=== PATIENT | male | born 1935 | race Caucasian/White ===

== ENCOUNTER 2016-12-16 14:59 | Inpatient (IN) | payer MEDICARE ==
[~2016-12-16] VITALS: Ht 177.8 cm; Wt 101.8 kg
[2016-12-16 16:02] LABS: BASOPHILS 0.4 % (0-2); HEMATOCRIT 37.5 % (42.0-54.0); IMMATURE GRANULOCYTES 0.4 % (0-5); MCH 29.8 pg (26.0-34.0); MCHC 34.7 g/dL (31.0-37.0); MEAN PLATELET VOLUME 11.3 fL (7.4-10.4); MONOCYTES 7.1 % (2-11); NEUTROPHILS 83.1 % (40-80); PLATELET COUNT 143 10x3/uL (130-400); RBC 4.36 10x6/uL (4.20-6.10); RDW 13.3 % (11.5-14.5)
[2016-12-16 16:11] LABS: INR 1.19 (0.85-1.17)
[2016-12-16 16:18] LABS: ALBUMIN 2.4 g/dL (3.4-5.0); ALKALINE PHOSPHATASE 38 U/L (46-116); ALT (SGPT) 112 U/L (10-68); BILIRUBIN - TOTAL 1.14 mg/dL (0.2-1.3); CALC OSMOLALITY 256 mosm/kg (275-300); CALCIUM 8.1 mg/dL (8.5-10.1); CHLORIDE - SERUM 94 mmol/L (98-107); GLUCOSE 108 mg/dL (74-106); POTASSIUM - SERUM 3.9 mmol/L (3.5-5.1); PROTEIN - SERUM 6.8 g/dL (6.4-8.2); SODIUM 127 mmol/L (136-145); UREA NITROGEN 16 mg/dL (7-18); eGFR NON AFRICAN AMERICAN 76 mL/min (90-120)
[2016-12-16 16:40] LABS: CREATINE KINASE 291 UL (21-232); MAGNESIUM - SERUM 1.8 mg/dL (1.8-2.4); PRO BNP 907 pg/mL (0-450); THYROID STIMULATING HORMONE 1.74 uIU/mL (0.36-3.74)
[2016-12-16 16:50] LABS: C-REACTIVE PROTEIN 21.8 mg/dL (0.0-0.9); TROPONIN-I 0.262 ng/mL (0.000-0.060)
[2016-12-16 16:53] LABS: CKMB 1.8 U/L (0.0-3.6); DIGOXIN 0.18 ng/mL (0.90-2.00)
--- NOTE | 2016-12-16 20:10 | NUR ---
PT RESTING IN BED WITH GUEST AT BEDSIDE AND DENIES NEEDS AT THIS TIME. BED IN LOWEST POSITION AND CALL LIGHT WITHIN REACH. ENCOURAGED THE PT TO CALL IF HE HAS NEEDS.
[2016-12-17] VITALS (7 sets, daily range): BP systolic 114–130; BP diastolic 71–85; Ht 177.8 cm; Wt 101.8 kg
[2016-12-17 00:48] LABS: APPEARANCE HAZY (CLEAR); BILIRUBIN NEGATIVE (NEGATIVE); COLOR STRAW (YELLOW); GLUCOSE NEGATIVE (NEGATIVE); KETONE NEGATIVE (NEGATIVE); NITRITE NEGATIVE (NEGATIVE); PROTEIN TRACE mg/dL (NEGATIVE); UROBILINOGEN NORMAL (NORMAL)
[2016-12-17 00:49] LABS: BACTERIA MODERATE /hpf (NONE SEEN); EPITHELIAL CELLS 0-5 /hpf (0-5); RED CELLS - URINE NONE SEEN /hpf (0-5); WHITE CELLS - URINE NSEEN /hpf (0-5)
--- NOTE | 2016-12-17 02:45 | NUR ---
PATIENT STATED HE HAS BECOME INCREASINGLY TIRED AT HOME, HAS HAD A TEMP, AND HAS A RASH THAT HAS SPEAD ON HIS BODY
[2016-12-17] MEDS ORDERED: LIPITOR40 MG PO (04:18)
[2016-12-17] MEDS ORDERED: PRADAXA150 MG PO ×2 (04:19→11:14)
[2016-12-17] MEDS ORDERED: SYNTHROID50 MCG PO (04:20)
[2016-12-17] MEDS ORDERED: LANOXIN125 MCG PO (04:20)
[2016-12-17] MEDS ORDERED: TOPROL XL100 MG PO (04:21)
[2016-12-17] MEDS ORDERED: MULTIPLE VITAMI1 TA1 PO (04:21)
[2016-12-17] MEDS ORDERED: OMEPRAZOLE20 M1 PO (04:22)
[2016-12-17] MEDS ORDERED: KENALOG 0.1 % 115 GM TOPICAL (04:23)
[2016-12-17] MEDS ORDERED: KLOR-CON 1010 MEQ PO (04:23)
[2016-12-17] MEDS ORDERED: ASCORBIC ACID500 MG PO (04:24)
--- NOTE | 2016-12-17 08:39 | NUR ---
PT AOX4 RESP EVEN AND NONLABORED PT DENIES NEEDS AT THIS TIME IV TO RIGHT AC PATENT AND INTACT AT THIS TIME SRX2 BED AT LOWEST SETTING CALL LIGHT WITHIN REACH WILL CONTINUE TO MONITOR
[2016-12-17 10:30] LABS: BASOPHILS 0.1 % (0-2); EOSINOPHILS 0 % (0-7); HEMATOCRIT 36.6 % (42.0-54.0); HEMOGLOBIN 12.6 g/dL (13.5-17.5); IMMATURE GRANULOCYTES 0.4 % (0-5); LYMPHOCYTES 9.5 % (15-50); MCH 29.7 pg (26.0-34.0); MCHC 34.4 g/dL (31.0-37.0); MCV 86.3 fL (80.0-100.0); MEAN PLATELET VOLUME 11.3 fL (7.4-10.4); MONOCYTES 3.9 % (2-11); NEUTROPHILS 86.1 % (40-80); PLATELET COUNT 154 10x3/uL (130-400); RBC 4.24 10x6/uL (4.20-6.10); RDW 13.2 % (11.5-14.5); WBC 7.2 10x3/uL (4.8-10.8)
[2016-12-17 10:46] LABS: ALBUMIN 2.1 g/dL (3.4-5.0); ALKALINE PHOSPHATASE 40 U/L (46-116); ALT (SGPT) 131 U/L (10-68); BILIRUBIN - TOTAL 1.09 mg/dL (0.2-1.3); CALC OSMOLALITY 272 mosm/kg (275-300); CALCIUM 7.9 mg/dL (8.5-10.1); CARBON DIOXIDE 21.2 mmol/L (21.0-32.0); CHLORIDE - SERUM 100 mmol/L (98-107); CREATININE - SERUM 0.9 mg/dL (0.6-1.3); POTASSIUM - SERUM 3.6 mmol/L (3.5-5.1); PROTEIN - SERUM 6.3 g/dL (6.4-8.2); SODIUM 134 mmol/L (136-145); UREA NITROGEN 12 mg/dL (7-18); eGFR NON AFRICAN AMERICAN 86 mL/min (90-120)
[2016-12-17 10:47] LABS: GLUCOSE 187 mg/dL (74-106)
[2016-12-17] MEDS ORDERED: LISINOPRIL10 MG PO (11:12)
--- NOTE | 2016-12-17 12:55 | NUR ---
PT AOX4 RESP EVEN AND NONLABORED PT DENIES NEEDS AT THIS TIME SRX2 BED AT LOWEST SETTING CALL LIGHT WITHIN REACH WILL CONTINUE TO MONITOR
--- NOTE | 2016-12-17 20:05 | NUR ---
OT NOTE: PT COMPLETED UPRIGHT SITTING AND BED MOB WITH MIN/CGA. PT COMPLETED HYGIENE TASK WITH SBA. PT COMPLETED BUE AROM EXS FOR INCREASED AX TOLERANCE. PT REQUIRED REST BREAKS. THANK YOU, BLANKA BARNARD/Venkatesh
--- NOTE | 2016-12-17 20:49 | NUR ---
PATIENT RESTING IN BED AND DENIES NEEDS AT THIS TIME. ADMINISTERED MEDS PER ORDERS AND COMPLETED ASSESSMENT. BED IN LOWEST POSITION AND CALL LIGHT WITHIN REACH. ENCOURAGED THE PT TO CALL IF HE HAS NEEDS.
[2016-12-18 02:33] VITALS: BP 113/74
[2016-12-18 06:08] LABS: BASOPHILS 0.1 % (0-2); EOSINOPHILS 0.6 % (0-7); HEMATOCRIT 34.8 % (42.0-54.0); HEMOGLOBIN 11.8 g/dL (13.5-17.5); IMMATURE GRANULOCYTES 0.4 % (0-5); LYMPHOCYTES 8.7 % (15-50); MCH 29.5 pg (26.0-34.0); MCHC 33.9 g/dL (31.0-37.0); MONOCYTES 4.7 % (2-11); NEUTROPHILS 85.5 % (40-80); RDW 13.5 % (11.5-14.5); WBC 8.9 10x3/uL (4.8-10.8)
[2016-12-18 06:14] LABS: PLATELET COUNT 201 10x3/uL (130-400)
[2016-12-18 06:30] VITALS: BP 129/77
[2016-12-18 06:40] LABS: ALBUMIN 1.9 g/dL (3.4-5.0); ALKALINE PHOSPHATASE 39 U/L (46-116); ALT (SGPT) 126 U/L (10-68); CALC OSMOLALITY 274 mosm/kg (275-300); CALCIUM 7.8 mg/dL (8.5-10.1); CARBON DIOXIDE 21.9 mmol/L (21.0-32.0); CHLORIDE - SERUM 105 mmol/L (98-107); CREATININE - SERUM 0.8 mg/dL (0.6-1.3); POTASSIUM - SERUM 3.5 mmol/L (3.5-5.1); PROTEIN - SERUM 5.5 g/dL (6.4-8.2); SODIUM 137 mmol/L (136-145); UREA NITROGEN 12 mg/dL (7-18); eGFR NON AFRICAN AMERICAN > 90 mL/min (90-120)
[2016-12-18 06:49] LABS: GLUCOSE 116 mg/dL (74-106)
--- NOTE | 2016-12-18 08:00 | NUR ---
REC'D IN BED AWAKE AND ALERT. RESP EVEN AND UNLABORED WITH NO DISTRESSS NOTED. CAN EXPRESS NEEDS AND WANTS. NO C/O NOTED OR VOICED. ASSESSMENT COMPLETED. C/L IUN REACH AT BEDSIDE.
[2016-12-18 10:05] VITALS: BP 145/80
--- NOTE | 2016-12-18 12:42 | NUR ---
WAS INFORMED BY DAIRY FARMER THAT PT IS NEEDING TO BE SEEN BY COMMERCIAL COLLECTIONS SPECIALIST D/T ELEVATED HR. CALL WAS PLACED BY CLASSIFICATION ANALYST TO DR. CARSON OFF SHE SPOKE WITH HERMINIO. AWAITING CONSULT.
[2016-12-18 13:29] VITALS: BP 127/80
--- NOTE | 2016-12-18 14:14 | NUR ---
OT NOTE: ATTEMPTED IN AM, HOWEVER, PT REPORTED THAT HE HAD NOT SLEPT SINCE HE HAS BEEN HERE AND HE IS SO TIRED HE DIDNT FEEL LIKE DOING EXS AT THIS TIME. IN AFTERNOON, PT WAS UP IN CHAIR. ASSISTED PT BACK IN BED WITH MIN ASSIST; ABLE TO AMB TO BATHROOM WITH MIN ASSIST AND MIN ASSIST WITH TOILETING. ONCE PT WAS IN THE BED, HE WAS EXTREMELY FATIGUED AND UNABLE TO SCOOT UP IN BED. REQUIRED ASSIST FOR BED MOB.
[2016-12-18 16:56] VITALS: BP 103/55
--- NOTE | 2016-12-18 19:23 | NUR ---
PT IS LYING IN BED WIT EYES CLOSED, EVEN RISE AND FALLL OF CHEST, NO C/O PAIN, VOICED NO NEEDS AT TIHS TIME, PT CL IN REACH, BED IN LOW POSITION, CONTINUE WITH PLAN OF CARE
[2016-12-18 20:00] VITALS: BP 118/64
--- NOTE | 2016-12-18 20:24 | NUR ---
OT NOTE: PT COMPLETED BED MOB WITH MIN A. PT COMPLETED HYGIENE WITH SET UP. PT COMPLETED BUE AROM FOR INCREASED UPPER BODY STRENGTH. THANK YOU, BLANKA BARNARD/Venkatesh
--- NOTE | 2016-12-18 20:45 | NUR ---
PT IS LYING IN BED WITH ATTENDEE AT BEDSIDE, NG TUBE WAS PULLED AND PER DR GARZA NO TUBE TO BE REINSERTED. BED IN LOW POSITION, CALL LIGHT IN REACH NO SIGNS OF DISTRESS, ABD INCISION , [place] DRAIN
--- NOTE | 2016-12-18 21:00 | NUR ---
RECEIVED CARE FROM DAY NURSE. PT LYING IN BED IN LOW FOWLERS POSITION. REPORTS NO NEEDS AT THIS TIME. CALL LIGHT AT SIDE. IV INFUSING TO PATENT RIGHT AC PER ORDER.
[2016-12-19] VITALS: BP 110/66
[2016-12-19 04:00] VITALS: BP 132/82
--- NOTE | 2016-12-19 04:42 | NUR ---
ASLEEP WITH EASY RESPIRATIONS AND NO DISTRESS NOTED. HE LOOKS COMFORTABLE WITH THE BED LOW, RAISL UP X'S 2 AND THE CALL LIGHT AT HAND.
[2016-12-19 05:29] LABS: BASOPHILS 0.3 % (0-2); EOSINOPHILS 2.6 % (0-7); HEMATOCRIT 34.9 % (42.0-54.0); HEMOGLOBIN 11.9 g/dL (13.5-17.5); IMMATURE GRANULOCYTES 0.8 % (0-5); LYMPHOCYTES 16.7 % (15-50); MCH 29.8 pg (26.0-34.0); MCHC 34.1 g/dL (31.0-37.0); MCV 87.5 fL (80.0-100.0); MEAN PLATELET VOLUME 10.2 fL (7.4-10.4); MONOCYTES 7.9 % (2-11); NEUTROPHILS 71.7 % (40-80); PLATELET COUNT 204 10x3/uL (130-400); RBC 3.99 10x6/uL (4.20-6.10); RDW 13.6 % (11.5-14.5)
[2016-12-19 05:40] LABS: WBC 6.2 10x3/uL (4.8-10.8)
[2016-12-19 05:57] LABS: ALKALINE PHOSPHATASE 38 U/L (46-116); ALT (SGPT) 97 U/L (10-68); BILIRUBIN - TOTAL 0.61 mg/dL (0.2-1.3); CALC OSMOLALITY 270 mosm/kg (275-300); CALCIUM 7.8 mg/dL (8.5-10.1); CARBON DIOXIDE 21.8 mmol/L (21.0-32.0); CHLORIDE - SERUM 104 mmol/L (98-107); CREATININE - SERUM 0.9 mg/dL (0.6-1.3); GLUCOSE 93 mg/dL (74-106); POTASSIUM - SERUM 3.8 mmol/L (3.5-5.1); PROTEIN - SERUM 5.5 g/dL (6.4-8.2); SODIUM 136 mmol/L (136-145); UREA NITROGEN 11 mg/dL (7-18); eGFR NON AFRICAN AMERICAN 86 mL/min (90-120)
--- NOTE | 2016-12-19 07:44 | NUR ---
AM ROUNDS- PT IN BED, WITH EYES CLOSED, AROUSES EASILY TO VOICE. RESP EVEN AND UNLABORED. RT AC IV INFUSING NS AT 75CC/HR. BED LOW AND WHEELS LOCKED, BEDSIDE RAILS X2, PT DENIES ANY NEEDS AT THIS TIME, CALL LIGHT IN REACH, NAD NOTED, WILL CONTINUE TO PLAN OF CARE.
[2016-12-19 08:11] VITALS: BP 114/72
--- NOTE | 2016-12-19 09:12 | NUR ---
AM MEDS GIVEN AT THIS TIME. PT IN BED, EATING BREAKFAST, DENIES ANY NEEDS AT THIS TIME. CALL LIGHT IN REACH, NAD NOTED, WILL CONTINUE TO MONITOR.
[2016-12-19 12:17] LABS: ANA REFLEX - DIRECT Negative (Negative); HEP B CORE AB TOTAL Negative (Negative); HEPATITIS C ANTIBODY 0.2 (0.0-0.9)
--- NOTE | 2016-12-19 13:00 | NUR ---
DISCONNECTED PT FROM IV SO HE COULD GET IN THE SHOWER, PHOTOENGRAVING HELPER AT BEDSIDE TO CHANGE LINEN AND GET PT READY FOR SHOWER. PT DENIES ANY NEEDS AT THIS TIME. CALL LIGHT IN REACH, FAMILY AT BEDSIDE, NAD NOTED, WILL CONTINUE PLAN OF CARE.
[2016-12-19 13:48] VITALS: BP 139/85
[2016-12-19 16:03] VITALS: BP 116/70
[2016-12-19 20:00] VITALS: BP 88/58
[2016-12-20] VITALS: BP 95/74
--- NOTE | 2016-12-20 00:35 | NUR ---
PATIENT RESTING WITH EYES CLOSED AND NO VISIBLE SIGNS OF DISTRESS. BED IN LOWEST POSITION AND CALL LIGHT WITHIN REACH.
[2016-12-20 04:00] VITALS: BP 138/77
[2016-12-20 04:14] LABS: RAPID PLASMA REAGIN Non Reactive (Non Reactive)
[2016-12-20 06:46] LABS: BASOPHILS 0.4 % (0-2); EOSINOPHILS 5.2 % (0-7); HEMATOCRIT 36.3 % (42.0-54.0); IMMATURE GRANULOCYTES 0.8 % (0-5); LYMPHOCYTES 17.9 % (15-50); MCH 29.1 pg (26.0-34.0); MCHC 33.1 g/dL (31.0-37.0); MCV 87.9 fL (80.0-100.0); MEAN PLATELET VOLUME 10.2 fL (7.4-10.4); MONOCYTES 7.2 % (2-11); NEUTROPHILS 68.5 % (40-80); PLATELET COUNT 236 10x3/uL (130-400); RBC 4.13 10x6/uL (4.20-6.10); RDW 14.2 % (11.5-14.5); WBC 7.3 10x3/uL (4.8-10.8)
[2016-12-20 07:02] LABS: ALKALINE PHOSPHATASE 43 U/L (46-116); ALT (SGPT) 91 U/L (10-68); CALC OSMOLALITY 273 mosm/kg (275-300); CALCIUM 7.8 mg/dL (8.5-10.1); CHLORIDE - SERUM 105 mmol/L (98-107); CREATININE - SERUM 0.8 mg/dL (0.6-1.3); GLUCOSE 101 mg/dL (74-106); POTASSIUM - SERUM 3.7 mmol/L (3.5-5.1); PROTEIN - SERUM 5.6 g/dL (6.4-8.2); SODIUM 138 mmol/L (136-145); eGFR NON AFRICAN AMERICAN > 90 mL/min (90-120)
[2016-12-20 07:03] LABS: UREA NITROGEN 8 mg/dL (7-18)
[2016-12-20 08:24] VITALS: BP 136/76
--- NOTE | 2016-12-20 10:30 | NUR ---
PT WIHTOUT DISTRESS.BACK TO BED FROM BATHROOM.HR INCREASED TO 160 PER PARTNER INTEGRATION PLANNER. HR NOW DECREASED TO 120
[2016-12-20 12:46] VITALS: BP 117/72
--- NOTE | 2016-12-20 14:15 | NUR ---
PT RESTING IN BED WITH EYES OPEN CALL LIGHT IN REACH NO PROBLEMS WILL MONITER
--- NOTE | 2016-12-20 14:22 | NUR ---
DR SEQUEIRA NOTIFIED OF PTS HEART RATE NO FURTHER ORDERS
[2016-12-20 15:49] VITALS: BP 113/71
[2016-12-20 21:25] VITALS: BP 123/79
[2016-12-21 00:27] VITALS: BP 122/79
--- NOTE | 2016-12-21 01:16 | NUR ---
PATIENT RESTING IN BED AND DENIES NEEDS AT THIS TIME. BED IN LOWEST POSITION AND CALL LIGHT WITHIN REACH. ENCOURAGED THE PATIENT TO CALL IF HE HAS NEEDS.
[2016-12-21 05:53] VITALS: BP 135/84
[2016-12-21 06:13] LABS: BASOPHILS 0.4 % (0-2); EOSINOPHILS 5.3 % (0-7); HEMATOCRIT 37.4 % (42.0-54.0); HEMOGLOBIN 12.5 g/dL (13.5-17.5); IMMATURE GRANULOCYTES 0.5 % (0-5); LYMPHOCYTES 18.7 % (15-50); MCH 29.6 pg (26.0-34.0); MCHC 33.4 g/dL (31.0-37.0); MCV 88.4 fL (80.0-100.0); MEAN PLATELET VOLUME 9.8 fL (7.4-10.4); MONOCYTES 8.3 % (2-11); NEUTROPHILS 66.8 % (40-80); PLATELET COUNT 264 10x3/uL (130-400); RBC 4.23 10x6/uL (4.20-6.10); RDW 14.5 % (11.5-14.5); WBC 8.3 10x3/uL (4.8-10.8)
[2016-12-21 06:40] LABS: ALBUMIN 2.2 g/dL (3.4-5.0); ALKALINE PHOSPHATASE 48 U/L (46-116); ALT (SGPT) 83 U/L (10-68); CALC OSMOLALITY 276 mosm/kg (275-300); CALCIUM 7.8 mg/dL (8.5-10.1); CHLORIDE - SERUM 106 mmol/L (98-107); CREATININE - SERUM 0.8 mg/dL (0.6-1.3); GLUCOSE 99 mg/dL (74-106); POTASSIUM - SERUM 4.2 mmol/L (3.5-5.1); PROTEIN - SERUM 5.5 g/dL (6.4-8.2); SODIUM 140 mmol/L (136-145); UREA NITROGEN 7 mg/dL (7-18); eGFR NON AFRICAN AMERICAN > 90 mL/min (90-120)
--- NOTE | 2016-12-21 07:30 | NUR ---
REPORT RECEIVED. PT RESTING QUIETLY, RR EVEN AND UNLAORED. PT DENIES NEEDS AT THIS TIME, REPORTS FEELING "PRETTY GOOD." ASSESSMENT PERFORMED, RASH OVER MOST OF THE PTS BODY. WILL CTM.
[2016-12-21 07:44] VITALS: BP 143/89
[2016-12-21 12:25] VITALS: BP 123/79
[2016-12-21 16:09] VITALS: BP 136/70
--- NOTE | 2016-12-21 18:30 | NUR ---
RR EVEN AND UNLABORED, PT DENIES NEEDS AT THIS TIME. WILL GIVE REPORT ON PT CONDITION FOR THE DAY.
--- NOTE | 2016-12-21 19:15 | NUR ---
RECEIVED CARE FROM DAY NURSE. PT LYING IN LOW FOWLERS POSITION. REPORTS NO NEEDS AT THTIS TIME. CALL LIGHT AT SIDE. IV INFUSING PER ORDER.
[2016-12-21 20:25] VITALS: BP 126/75
--- NOTE | 2016-12-22 00:03 | NUR ---
PATIENT IS AWAKE, ALERT AND ORIENTED. PATIENT DENIES NEEDS AT THIS TIME. HANDED PATIENT HIS CALL LIGHT, TOLD HIM TO CALL IF HE NEEDS ANYTHING. PATIENT AGREED. PATIENT REQUESTED HIS DOOR CLOSED, CLOSED IT.
[2016-12-22 00:40] VITALS: BP 149/92
[2016-12-22 05:07] VITALS: BP 135/86
[2016-12-22 06:30] LABS: BASOPHILS 0.4 % (0-2); EOSINOPHILS 5.4 % (0-7); HEMATOCRIT 35.6 % (42.0-54.0); HEMOGLOBIN 11.8 g/dL (13.5-17.5); IMMATURE GRANULOCYTES 0.6 % (0-5); LYMPHOCYTES 22.3 % (15-50); MCH 29.4 pg (26.0-34.0); MCHC 33.1 g/dL (31.0-37.0); MCV 88.8 fL (80.0-100.0); MEAN PLATELET VOLUME 9.5 fL (7.4-10.4); MONOCYTES 9.6 % (2-11); NEUTROPHILS 61.7 % (40-80); PLATELET COUNT 258 10x3/uL (130-400); RBC 4.01 10x6/uL (4.20-6.10); RDW 14.4 % (11.5-14.5); WBC 6.9 10x3/uL (4.8-10.8)
[2016-12-22 06:46] LABS: ALBUMIN 2.1 g/dL (3.4-5.0); ALKALINE PHOSPHATASE 43 U/L (46-116); ALT (SGPT) 63 U/L (10-68); CALC OSMOLALITY 276 mosm/kg (275-300); CALCIUM 8.4 mg/dL (8.5-10.1); CARBON DIOXIDE 26.2 mmol/L (21.0-32.0); CHLORIDE - SERUM 107 mmol/L (98-107); CREATININE - SERUM 0.7 mg/dL (0.6-1.3); GLUCOSE 104 mg/dL (74-106); POTASSIUM - SERUM 3.8 mmol/L (3.5-5.1); PROTEIN - SERUM 5.7 g/dL (6.4-8.2); SODIUM 140 mmol/L (136-145); UREA NITROGEN 8 mg/dL (7-18); eGFR NON AFRICAN AMERICAN > 90 mL/min (90-120)
[2016-12-22 08:22] VITALS: BP 140/86
--- NOTE | 2016-12-22 08:58 | NUR ---
REC'D IN BED AWAKE AND ALERT. RESP EVEN AND UNLABORED WITH NO DISTRESS NOTED. CAN EXPRESS NEED AND WANTS. NO C/O NOTED OR VOICED AT THIS TIME. ASSESSMENT COMPLETED.C/L IN REACH AT BEDSIDE.
--- NOTE | 2016-12-22 10:11 | NUR ---
SITTING UP IN CHAIR. DENIES ANY NEEDS AT THIS TIME.
[2016-12-22] MEDS ORDERED: AMPICILLIN TRI500 MG PO (12:18)
[2016-12-22] MEDS ORDERED: FLORAJEN3 CAPS460 MG PO (12:19)
[2016-12-22 13:02] VITALS: BP 121/81
--- NOTE | 2016-12-22 13:30 | CN ---
PATIENT NAME:LUCY RANDOLPH MEDICAL RECORD: [id number] : 39 LOCATION:[id number] ADMIT DATE: 12/17/16 ACCOUNT: [id number] CONSULTING PHYSICIAN: JOEL FENTON MD REFERRING PHYSICIAN: HERMAN DEVRIES MD DATE OF CONSULTATION: 12/18/2016 HISTORY OF PRESENT ILLNESS: A 81-year-old gentleman with a longstanding history of atrial fibrillation by his report, occasionally symptomatic, history of hypertension, hypothyroidism on replacement, who was admitted with generalized rash of about a 2 week history. Evaluated, has had biopsy taken as well as multiple cultures taken. Has had some generalized malaise, fatigue. Occasionally knows his heart racing or pounding, has been on beta-chu as well as anticoagulation for CVA prophylaxis as well as digoxin. We are asked to see him concerning him cardiovascular status. PAST MEDICAL HISTORY: Includes; 1. History of hypertension. 2. Hypothyroidism, on replacement. 3. Atrial fibrillation. 4. Gastroesophageal reflux disease. MEDICATIONS: Include Pradaxa 150 mg b.i.d., omeprazole 20 daily, Synthroid 50 mcg daily, metoprolol 100 daily, digoxin 0.125 daily, Lipitor 10 daily. ALLERGIES: None known. SOCIAL HISTORY: Nonsmoker and nondrinker. Easily takes care of all ADLs regularly. REVIEW OF SYSTEMS: The patient reports easy bruising but reports no swollen glands. The patient reports no fever, no night sweats, no significant weight gain, no significant weight loss. No significant exercise tolerance. The patient reports no dry eyes, no irritation, no vision change. Patient reports no difficulty hearing and no ear pain. Patient reports no frequent nose bleeds or nose and sinus problems. Patient reports on arm pain on exertion. No shortness of breath while lying down. No history of heart murmur. Patient reports no cough, no wheezing or coughing up blood. Patient reports no abdominal pain, no vomiting. Normal appetite. No diarrhea and not vomiting blood. No nausea and no constipation. Patient reports no incontinence. No difficulty urinating. No hematuria. No increased frequency. Patient reports no muscle aches. No weakness, no arthralgias, no back pain. No swelling of the extremities. Patient reports no abnormal mole, no jaundice. Reports no loss of consciousness. No weakness and no numbness. No seizures, dizziness, or headaches. The patient reports no depression, no sleep disturbance, feeling safe in a relationship and no alcohol abuse. Patient reports on fatigue. Reports no runny nose or sinus pressure. No itching, no hives, and no frequent sneezing. PHYSICAL EXAMINATION: GENERAL: Pleasant gentleman in no acute distress. Obviously, diffuse purpuric appearing rash left upper extremity. VITAL SIGNS: Blood pressure 127/80, pulse 117 and irregular. HEENT: Normocephalic, atraumatic. NECK: No JVD or bruit. CONSULT REPORT [id number] LUCY RANDOLPH HEART: Irregular, rate is elevated. LUNGS: Good air excursion. ABDOMEN: Soft, nontender. EXTREMITIES: Pulse 2+. No edema. Rash described as above. NEUROLOGIC: Grossly intact. IMPRESSION: Atrial fibrillation, maybe exacerbated with recurrent underlying illness, already on no act for cerebrovascular accident prophylaxis. We will add extra dose of digoxin. Check echocardiograph study. Further recommendations based on above. TRANSINT:[id number] Voice Confirmation ID: [id number] DOCUMENT ID: [id number] JOEL FENTON MD at 1330 CC: [id number] DICTATION DATE: 12/18/16 1512 MORTGAGE LOAN COORDINATOR: 12/18/16 1604 ADM IN [facility] [address] [place] [address]
--- NOTE | 2016-12-22 14:48 | NUR ---
Patient Name: LUCY RANDOLPH Admission Status: CO Accout number: [id number] Admission Date: 12-16-2016 : 1935 Admission Diagnosis: Attending: HERMAN DEVRIES Current LOS: 6 Anticipated DC Date: 12-22-2016 Planned Disposition: Home Primary Insurance: [facility] Discharge Planning Comments: 1400 CM MET WITH THE PATIENT AND HIS AT THE [facility]. HE IS READY FOR DISCHARGE TO HOME. HIS NEPHEW WILL PROVIDE TRANSPORTATION TO HOME. HE SEES BÁRBARA THOMPSON AT THE CLINIC IN [place]. DR PEREZ IS HIS PCP. ROBOTICS TESTING TECHNICIAN IS DR ROMANO. DR MONTGOMERY FOLLOWS FOR DERMATOLOGY. HE WAS INDEPENDENT IN HIS CARE. DOES NOT REQUIRE DEVICE FOR AMBULATION. DENIES ANY DME. HE HAS NO STAIRS TO ENTER HIS HOME. HAS A RAMP. DENIES ANY NEED FOR SERVICES AT DISCHARGE. CAN SAFELY RETURN TO HIS HOME. Scanning Manager: Lynnette Rubalcava
[2016-12-22 15:18] LABS: EHRLICHIA CHAFF IGG Negative (Neg:<1:64); EHRLICHIA CHAFF IGM Negative (Neg:<1:20); HGE IGG TITER Negative (Neg:<1:64); HGE IGM TITER Negative (Neg:<1:20); RMSF IGM 0.65 index (0.00-0.89)
--- NOTE | 2016-12-22 16:04 | NUR ---
PT WAS DISCHARED AT THIS TIME WITH BELONG AND FOLLOW UP APPOINTMENTS. BOTH PT AND VOICED UNDERSTANDING. C/L IN REACH AT BEDSIDE.
[2016-12-22 16:12] LABS: ANCA - ANTIMYELOPEROXIDASE <9.0 U/mL (0.0-9.0); ANCA - ANTIPROTEINASE 3 <3.5 U/mL (0.0-3.5); ANCA - ATYPICAL <1:20 titer (Neg:<1:20); ANCA - CYTOPLASMIC <1:20 titer (Neg:<1:20); ANCA - PERINUCLEAR <1:20 titer (Neg:<1:20)
[2016-12-23 14:18] LABS: F. TULARENSIS - IGG Negative (()); F. TULARENSIS - IGM Negative (())
[2016-12-25 03:10] LABS: OVA + PARASITE EXAM Final report (())
--- NOTE | 2017-01-05 09:02 | EC ---
PATIENT:LUCY RANDOLPH DATE OF SERVICE: 12/17/16 SEX: M MEDICAL RECORD: [id number] DATE OF : [birth year] LOCATION:[facility] AGE OF PATIENT: 82 ADMISSION DATE: 12/17/16 REFERRING PHYSICIAN: INTERPRETING PHYSICIAN: AISSATOU CARSON MD ECHOCARDIOGRAM REPORT ECHO CHARGES 4 ECHO COMPLETE CLINICAL DIAGNOSIS: A-FIB ECHOCARDIOGRAPHIC MEASUREMENTS (adult normal given) AC root (d.<3.7cm) 3.4 cm LV Septum d (<1.2 cm> 1.7 cm Valve Excursion 2.2 cm LV Septum (systole) 2.2 cm Left Atria (s.<4.0cm> 5.1 cm LVPW d(<1.2cm) 1.6 cm RV (d.<2.3cm) 3.0 cm LVPW (sytole) 2.0 cm LV diastole(<5.6CM) 5.8 cm MV E-F(>70mm/sec) cm LV systole 3.9 cm LVOT Diameter 2.1 cm MV exc.(>10mm) cm Est.ejection fraction (50-75%) % Pericardial Effusion N DOPPLER: LVIT cm/sec A cm/sec E 100 cm/sec LA cm/sec RVSP 36.2 mmHg LVOT 103 cm/sec AOP1/2T m/s Asc. Ao 141 cm/sec RVOT 68.0 cm/sec RA cm/sec PA 90.0 cm/sec AV Gradient Peak 7.9 mmHg AV Mean 4.4 mmHg AV Area 3.0 cm MV Gradient Peak 7.0 mmHg MV Mean 2.8 mmHg MV Area cm COMMENTS: Rack Puncher: 1 NOMAN RAMOE Thermal Cutting Machine Operator: 3 Dr. Rodríguez TAPE# PACS DATE OF SERVICE: 12/19/2016 Echocardiogram FINDINGS: 1. Left ventricular chamber size is mildly dilated. Left ventricular systolic function is normal. Overall ejection fraction estimated at 60%. 2. Left atrium, right atrium, and right ventricular chamber sizes are dilated. Left atrium measures 5.1 cm. 3. Valvular structures have normal structure and motion. ECHOCARDIOGRAM REPORT [id number] LUCY RANDOLPH 4. Doppler interrogation reveals moderate mitral regurgitation, trace tricuspid regurgitation. No other valvular insufficiency or stenosis. Pulmonary systolic pressure is preserved, estimated at 36 mmHg. 5. No evidence of pericardial effusion or left ventricular thrombus. TRANSINT:[id number] Voice Confirmation ID: [id number] DOCUMENT ID: [id number] 12/31/2016 Edited to correct date of service, dmemily. AISSATOU CARSON MD at 0902 CC: [id number] DICTATION DATE: 12/22/16 1234 BEHAVIORAL PEDIATRICIAN: 12/22/16 1302 DIS IN 12/22/16 [place] [id number] [place] [id number]
== END 2016-12-22 16:05 | disposition home or self-care (01) | DRG 596 ==
LOC: D.ER 14:59 → D.MS 17:51 → OBSVTIME 17:51 → D.MS 12-17 15:42
PROVIDERS: Emergency Medicine; Nurse Practitioner Family; Student in an Organized Health Care Education/Training Program; ADMIT Emergency Medicine
DX: L51.9 Erythema multiforme, unspecified (principal); E87.1 Hypo-osmolality and hyponatremia; Z57.5 Occupational exposure to toxic agents in other industries; Z77.098 Contact with and (suspected) exposure to other hazardous, chiefly nonmedicinal, chemicals; R79.89 Other specified abnormal findings of blood chemistry; I10 Essential (primary) hypertension; I48.91 Unspecified atrial fibrillation; K21.9 Gastro-esophageal reflux disease without esophagitis; E03.9 Hypothyroidism, unspecified; Z87.891 Personal history of nicotine dependence